=== PATIENT | female | born 1960 | race Caucasian/White ===

== ENCOUNTER → 2017-10-18 13:03 | Outpatient (CLI) | payer OTHER, SELFPAY ==
[2017-10-18 14:42] LABS: International Normalized Ratio 1.9; Prothrombin Time (Protime)PT. 20.6 SECONDS (11.7-14.9)
== END ==
PROVIDERS: Visit Provider Surgery
DX: Z79.01 Long term (current) use of anticoagulants (principal)
CPT/HCPCS: 36415; 85610

== ENCOUNTER → 2018-02-04 14:58 | Outpatient (CLI) | payer OTHER, SELFPAY ==
[2018-02-04 17:35] LABS: Absolute Lymphocyte Count 1.97 X10^3/ul (0.83-4.51); Basophil# 0.02 X10^3/uL; Basophil% 0.4 % (0-1); Eosinophil# 0.02 X10^3/uL; Eosinophils% 0.4 % (0-5); Hematocrit 42.7 % (37-47); Hemoglobin 14.5 g/dl (12.0-15.0); Lymphocyte # 1.97 X10^3/ul (4.0); Mean Corpuscular Hgb 29.5 pg (27.0-32.0); Mean Corpuscular Volume 86.8 fL (81-99); Mean Platelet Vol. 10.5 fl (6.2-12.0); Monocyte# 0.48 X10^3/uL; Monocyte% 8.8 % (0-10); Neutrophil # 2.97 X10^3/uL (2.7-7.7); Neutrophil % 54.2 % (47-70); Platelet Count 236 K/mm3 (150-450); RBC Distribution Width CV 12.5 % (11.6-14.6); RBC Distribution Width SD 39.3 fl (35.1-43.9); Red Blood Count 4.92 M/mm3 (4.2-5.4); White Blood Count 5.5 K/mm3 (4.4-11.0)
[2018-02-04 17:42] LABS: POSITIVE COUNT NO; POSITIVE DIFFERENTIAL NO; POSITIVE MORPHOLOGY NO
[2018-02-04 18:44] LABS: ALB/GLOB Ratio 1.1 RATIO (0.9-2.4); AST(SGOT) 24 U/L (15-37); Alanine Aminotransfer ALT/SGPT 27 U/L (13-56); Albumin, Serum 4.1 g/dL (3.2-5.0); Alkaline Phosphatase 83 U/L (45-117); Anion Gap 9 (5-15); BUN 16 mg/dL (7-18); BUN/Creat Ratio 20.5 RATIO (10-20); Calcium,Total 8.8 mg/dL (8.5-10.1); Chloride 105 mmol/L (98-107); Cholesterol 201 mg/dL (200); Creatinine, Serum 0.78 mg/dL (0.55-1.02); EST Glomerular Filtration Rate 80 mL/min (>60); Est Glom Filt Rate - Afr Amer 97 mL/min (>60); Globulin 3.8 g/dL (2.2-4.2); Glucose 86 mg/dL (74-106); High Density Lipoprotein 57 mg/dL; Potassium 3.7 mmol/L (3.5-5.1); Protein, Total 7.9 g/dL (6.4-8.2); Sodium Level 140 mmol/L (136-145); T4 Free Direct 1.86 ng/dL (0.76-1.46); Thyroid Stim Hormone (TSH) 0.02 uIU/mL (0.358-3.74); Triglycerides 105 mg/dL; Very Low Density Lipoprotein 21 mg/dL (5-40)
== END ==
PROVIDERS: Family Provider Family Medicine; PCP Family Medicine; Visit Provider Family Medicine
DX: D68.59 Other primary thrombophilia (principal); E89.0 Postprocedural hypothyroidism; Z82.49 Family history of ischemic heart disease and other diseases of the circulatory system
CPT/HCPCS: 36415; 80053; 80061; 84439; 84443; 85025

== ENCOUNTER → 2018-03-08 08:07 | Outpatient (CLI) | payer OTHER, SELFPAY ==
--- NOTE | 2018-03-08 08:07 | RAD_ITS ---
STUDY: BARIUM ENEMA. REASON FOR EXAM: Female, 57 years old. Colostomy for a ruptured diverticulitis and possible re-anastomosis. FLUOROSCOPY TIME (if supplied): (1:22) minutes/seconds TECHNIQUE: Contrast was introduced retrograde through the stoma as well as to the rectum. Entire colon was opacified. COMPARISON: None. FINDINGS: The left hemicolon as well as the transverse colon and the right hemicolon are unremarkable. Residual fecal material is seen within the rectal stump. There is no evidence of obstruction. RAD/Barium Enema No Air Cont IMPRESSION: Unremarkable barium enema through the stoma as well as the rectum. Electronically Signed: Stephon Doan MD at 8:21 EDT Tel [phone], Service support ,
== END ==
PROVIDERS: Family Provider Family Medicine; PCP Family Medicine; Visit Provider Surgery
DX: K57.20 Diverticulitis of large intestine with perforation and abscess without bleeding (principal)
CPT/HCPCS: 74270

== ENCOUNTER 2018-05-09 05:24 | Inpatient (IN) | payer OTHER, SELFPAY ==
[2018-05-02 10:28] VITALS: BP 142/77; PULSE 76; RESP 16; TEMP 36.6; O2SAT 95; BMI 31.3
[2018-05-02 10:57] LABS: Hemoglobin 13.6 g/dl (12.0-15.0); Mean Corp Hgb Conc 33.2 g/gl (32-36); Mean Corpuscular Hgb 29.6 pg (27.0-32.0); Mean Corpuscular Volume 89.3 fL (81-99); Mean Platelet Vol. 9.5 fl (6.2-12.0); Platelet Count 215 K/mm3 (150-450); RBC Distribution Width CV 13.8 % (11.6-14.6); RBC Distribution Width SD 44.4 fl (35.1-43.9); Red Blood Count 4.59 M/mm3 (4.2-5.4); Scan Indicated on CBC? Y/N NO; White Blood Count 4.3 K/mm3 (4.4-11.0)
[2018-05-02 11:28] LABS: Anion Gap 7 (5-15); BUN 14 mg/dL (7-18); BUN/Creat Ratio 19.7 RATIO (10-20); Calcium,Total 8.9 mg/dL (8.5-10.1); Chloride 111 mmol/L (98-107); Creatinine, Serum 0.71 mg/dL (0.55-1.02); EST Glomerular Filtration Rate 89 mL/min (>60); Est Glom Filt Rate - Afr Amer 108 mL/min (>60); Estimated Creatinine Clearance 68.31 ml/min; Glucose 93 mg/dL (74-106); Sodium Level 142 mmol/L (136-145); Thyroid Stim Hormone (TSH) 0.09 uIU/mL (0.358-3.74)
[2018-05-09] VITALS (11 sets, daily range): BP systolic 104–141; BP diastolic 50–88; PULSE 60–111; RESP 14–18; TEMP 36.5–37.6; O2SAT 92–99; BMI 31.3
--- NOTE | 2018-05-09 | COL_PTH ---
PATIENT: GREGORIO MORRIS LOC: MS2 U#:[id number] AGE/SX: 57/F ROOM: MS210 RE05/09/[address]: Dr. Nicola Rosenthal MD : 1960 BED: 1 DIS: 05/11/2018 SPEC #: [id number] RECD: 05/09/18 15:33 STATUS: CAMELIA REOctavio #: [id number] FLORECITA: 05/09/18 00:[address]: Nicola Rosenthal DEPT: SURGICAL PATHOLOGY RECD BY: Baljeet Escamilla ENTERED: 05/09/18 15:34 SP TYPE: COLON OTHR DR: Dr. Richi Norwood MD Tissues: A - Colon Donuts B - Colon Donuts C - Colon, NOS D - Rectum, NOS Procedures: Surgery Specimen Level III Surgery Specimen Level IV HEADER OPERATION: Laparoscopic partial colectomy with take down colostomy PRE-OP DIAGNOSIS: History perforated diverticulum large intestine, Ghada pouch TISSUE SUBMITTED: A ? Rectal donut, B ? Sigmoid donut, C ? Sigmoid colon, D - Rectum MICROSCOPIC DIAGNOSIS A. Rectal donut: Colonic donut, no pathologic diagnosis. B. Sigmoid donut: Colonic donut, no pathologic diagnosis. C. Sigmoid colon, colostomy: Segment of sigmoid colon with adjacent skin consistent with colostomy with chronic inflammation and hyperkeratosis. D. Rectum: Segment of colon, no pathologic diagnosis. Pericolonic lymph node tissue with reactive changes. Kush 05/11/18 COMMENT Please make reference to previous specimen ([id number]), segment of sigmoid colon with diagnosis of diverticulosis and diverticulitis. MICROSCOPIC DESCRIPTION Slides are reviewed. GROSS DESCRIPTION A - Received in fixative is one container labeled with the patient's name and designated rectal donut. The specimen consists of a donut-shaped piece of colonic tissue measuring 1.5 x 1.5 x 1 cm. The mucosa is congested. No mass lesion is identified. The entire specimen is submitted in one cassette. / WOODROW:brad 05/09/18 B - Received in fixative is one container labeled with the patient's name and designated sigmoid donut. The specimen consists of a donut-shaped piece of colonic tissue measuring 1.5 x 1.5 x 0.6 cm. Multiple sutures are noted. Twisting Department End Finder sections are submitted in one cassette. / : 05/09/18 C - Received in fixative is one container labeled with the patient's name and designated sigmoid colon. The specimen consists of a segment of colon with a piece of skin attached at one edge measuring 4 cm in length. The skin piece measures 0.3 cm in thickness. Sections will be submitted after overnight fixation. / : 05/09/18 No mucosal lesion is identified. The mucosa is congested close to the colostomy site (at the junction of the skin). Twisting Department End Finder sections are submitted in three cassettes as follows: 1 & 2 ? colon with adjacent skin, 3 ? resources representative section away from the other area and pericolonic adipose tissue. / : 05/10/18 D - Received in fixative is one container labeled with the patient's name and designated rectum. The specimen consists of a segment of colon with attached adipose tissue measuring 5 cm in length. Both resection margins are stapled. No mucosal lesion is identified. The sections will be submitted after overnight fixation. / : 05/09/18 No mucosal lesions are identified. Sections of the attached adipose tissue reveal focal congested and hemorrhagic area. Twisting Department End Finder sections are submitted in three cassettes as follows: 1 & 2 ? colonic tissue, 3 ? pericolonic adipose tissue. / : 05/10/18 TC:5 CPT: 97086 x3, 44421
--- NOTE | 2018-05-09 06:23 | PCM.CONS.B ---
Problem List (1) DVT (deep venous thrombosis) Status: Chronic (2) Perforated diverticulum of large intestine Status: Acute (3) Protein C deficiency Status: Chronic - Consult Date of Consult: 05/09/18 Update history and physical - Reason for Consult HPI: Patient is a 57 y/o female I am following for Ghada pouch takedown. Patient denies recent hospitalizations or illnesses. She denies abdominal pain/discomfort. She has held her anticoagulation. She is anxious for the procedure to be completed. Patient's previous history per Dr. Rosenthal: GREGORIO MORRIS, is a 57 F who presents to the office today for ongoing surgical care. 57-year-old female. October 04, 2017 she was taken to surgery with fecal peritonitis and perforation of a sigmoid diverticulum. She underwent a Ghada procedure. This was performed through an open technique. An end sigmoid colostomy performed. Her complicating features include chronic coumadinization because of 5 previous DVTs. Fortunately her stay was not complicated by DVT at that time. The patient has protein C deficiency I have records dated March 21, [address] Ethan Agudelo colonoscopy demonstrating diverticulosis of the sigmoid and descending colon. No polyps. Follow-up colonoscopy at 10 years. My notes made comment that at the time of her surgery there was diffuse fecal contamination. Extensive adhesions may be present. On March 08, 2018 at the [facility] I had a barium enema obtained. This was not remarkable. She appears to have an adequate rectal pouch. She has laxity noted at the splenic flexure which should further assist. The patient has made positive health changes. She now appears to be physically recovered. Intake Vital Signs 03/29/18 Height 5 ft 2 in 03/29/18 Weight: 171 lb 03/29/18 Body Mass Index (BMI) 31 03/29/18 Blood Pressure 141/65 03/29/18 Blood Pressure Location Rt brachial 03/29/18 Blood Pressure Position Sitting 03/29/18 Respiratory Rate 16 03/29/18 Pulse Rate 60 03/29/18 Pulse Source Monitor 03/29/18 Temperature 97.7 F 03/29/18 Temperature Source Temporal 03/29/18 Pulse Ox 97 03/29/18 Oxygen Delivery Method room air Intake Visit Reasons: Discuss Barium Enema results- 03/08/18 Chief Complaint: ostomy leak [place] Stainer Required: No Is patient in pain?: No Allergies Sulfa (Sulfonamide Antibiotics) Allergy Medications Levothyroxine [Synthroid] 150 mcg PO DAILY 02/23/14 [History Confirmed 03/29/18] Warfarin [Coumadin] 7.5 mg PO FOWLER 02/23/14 [History Confirmed 03/29/18] Warfarin [Coumadin] 5 mg PO MOTUWETHFRSA 10/04/17 [History Confirmed 03/29/18] Acetaminophen [Tylenol Tablet] 325 - 650 mg PO Q4H PRN PRN tab 10/10/17 [Rx Confirmed 03/29/18] Amox/Clavulanate Tablet [Augmentin Tablet] 875 mg PO BIDCM #10 tab 10/10/17 [Rx Confirmed 03/29/18] Enoxaparin [Lovenox] 80 mg SC Q12@0600,1800 syringe 10/10/17 [Rx Confirmed 03/29/18] Hydrocodone Bitart/Apap 5-325 [[place] 5/325] 1 - 2 tab PO Q4H PRN PRN #15 tab 10/10/17 [Rx Confirmed 03/29/18] Metronidazole [Flagyl] 500 mg PO TID #15 tab 10/10/17 [Rx Confirmed 03/29/18] PFSH Medical History Migraines (Chronic) Anxiety (Chronic) Goiter (Chronic) Hypothyroidism (Chronic) DVT (deep venous thrombosis) (Chronic) IBS (irritable bowel syndrome) (Chronic) Vasovagal syncope (Chronic) Perforated diverticulum of large intestine (Acute) Sepsis (Acute) Protein C deficiency (Chronic) Hypoalbuminemia (Acute) Anemia (Acute) Hypokalemia (Acute) Peritonitis (acute) generalized (Acute) History of open sigmoidectomy (Acute ~10/04/17) Family History Grandfather Colon cancer Father Diabetes Heart disease Mother Hypertension Social History Smoking Status: Never smoker substance use type: does not use ROS General General: Yes weight change; no appetite, fatigue, colon cancer, breast cancer or weakness HEENT HEENT: No difficulty swallowing, eye injury, eye surgery, swollen glands or hoarseness Endo Endocrine: Yes thyroid disease; no diabetes mellitus, thyroid cancer, Hair loss, heat intolerance or cold intolerance Skin Skin: No rash or changing moles [facility] Musculoskeletal: No back problems, arthritis, rheumatoid arthritis, gout or joint pain Cardio Cardiovascular: No murmur, pacemaker, heart disease, atrial fibrillation, high blood pressure, heart attack, heart stent, palpitations, shortness of breat with exertion or chest pain Psych Psychiatric: No depression, anxiety or hearing voices Resp Respiratory: No shortness of breath, No sleep apnea, No cough, No COPD, No asthma, No emphysema, No wheezing Gastro Gastrointestinal: No abdominal pain, No nausea or vomiting, No diarrhea, No constipation, No blood in stool, No acid reflux, No hemorrhoids, No ulcers, No gallbladder problem, No black,tarry stools Deon Hematologic: Yes blood thinners, No blood disorders, No bleeding, No anemia, Yes blood clots Neuro Neurologic: No system reviewed and no additional complaints, except as docu, No as per HPI, No abnormal walking, No abnormal hearing, No abnormal movements, No abnormal speech, No behavioral changes, No burning sensations, No confusion, No seizure-like activity, No unsteadiness, No dizziness, No localized weakness, No frequent falls, No headache(s), No lack of coordination, No loss of vision, No memory loss, No numbness, No other visual disturbances, No radiating pain, No restless legs, No sensory deficit, No fainting, No tingling, No tremor(s), No weakness, No other Exam Const General: cooperative, healthy appearing, comfortable, no acute distress Nutritional Appearance: average body habitus Orientation: alert, awake, oriented x3 [facility] Head: normal to inspection Eyes General: appearance normal, both eyes and all related structures Neck Neck: normal visual inspection Chest Chest palpation & inspection: normal inspection of the chest Resp Effort & Inspection: normal respiratory effort Auscultation: clear to auscultation bilaterally Cardio Rate: regular rate Rhythm: regular rhythm Heart Sounds: no murmurs GI Palpation: soft, no hepatosplenomegaly Auscultation: normal bowel sounds Other: Well-healed infraumbilical midline incision with mild hypertrophic scarring. Left lower quadrant and sigmoid colostomy noted. Healthy in appearance. [facility] Cervical Spine: normal cervical lordosis Skin General: no rashes or lesions noted Neuro Cranial Nerves: CN's II-XI intact bilaterally Extrem General: no clubbing, cyanosis or edema Psych Affect: normal affect Assessment & Plan Problems 1. Chronic deep vein thrombosis (DVT) of both lower extremities, unspecified vein 2. Perforated diverticulum of large intestine 3. Protein C deficiency Plan Dr. Rosenthal will plan to perform a laparoscopic takedown of her end sigmoid colostomy. Technique, benefits, risks, alternatives have been previously discussed with the patient by Dr. Rosenthal. Patient is aware that conversion to an open procedure may occur. There are no guarantees of success. Patient has had the opportunity to ask and have questions answered. Patient verbally understands and agrees to proceed with the proposed procedure. Patient was instructed to hold her Coumadin 3 days preoperatively. Lovenox 40 mg subcu daily for 2 days preoperatively. Patient will use an enema the day prior to her surgery. She will also perform a MiraLAX bowel prep for her colon. Code Visit Inpatient E&M: 58281 Init Hosp L1 - NO CHARGE; UPDATE HISTORY AND PHYSICAL
--- NOTE | 2018-05-09 06:51 | DCINST_ITS ---
Discharge Diet: Light diet - advance as tolerated - if you have questions about your diet instructions, please talk to you doctor. Discharge Activity: May Not Drive - for 1 week or while taking narcotic pain medicine. May shower in (days): 1 Lifting Restrictions: 10 pounds Call your doctor if your incision/area has: Continuous Slow Oozing, Sudden Increased Bleeding, Increased Pain/ Swelling, Increased Redness, Foul Smelling Discharge Call your doctor if you observe: Fever of 101 or Higher Suture Line Care: Avoid Pulling/Pushing, Avoid Pinching/Bending Additional Dressing/Incision Instructions:: Change or remove dressing in 4 days. Leave steri-strips in place for 1 week. Allergies/Adverse Reactions: Allergies Sulfa (Sulfonamide Antibiotics) Allergy (Verified 05/02/18 10:13) Other i don't urinate, my systems shut down Medications to take at Discharge Levothyroxine [Synthroid] 150 mcg PO DAILY 02/23/14 Warfarin [Coumadin] 7.5 mg PO FOWLER 02/23/14 Warfarin [Coumadin] 5 mg PO MOTUWETHFRSA 10/04/17 Acetaminophen [Tylenol Tablet] 325 - 650 mg PO Q4H PRN PRN tab 10/10/17 Diphenhydramine HCl [Benadryl Allergy] 25 mg PO PRN PRN 05/02/18 Enoxaparin [Lovenox] 40 mg SC DAILY 05/02/18 Primary Care Physician: Richi Norwood MD [Primary Care Provider] - Test Results: Test results from this visit will be discussed in further detail at your follow- up appointment, if applicable. Please Follow Up With: Nicola Rosenthal MD - [phone] When: Call to make an appointment to be seen in about 10 days.
[2018-05-09] MEDS: Bupivacaine 0.5% PF 10 ML VIAL (08:10)
[2018-05-09] MEDS: BUPIVACAINE LIPOSOME/PF 20 ML VIAL OPERA.SITE (08:30)
[2018-05-09] MEDS: Lubricating Jelly 60 GM Tube 30 GM TOPICAL (10:26)
--- NOTE | 2018-05-09 12:10 | PCM.OPRPT ---
Problem List (1) Colostomy in place Status: Acute Report of Operation Date of Procedure: 05/09/18 Pre-Operative Diagnosis: Assessment and sigmoid colostomy left lower quadrant with history of perforated diverticulitis and fecal peritonitis Post-Operative Diagnosis: History of end sigmoid colostomy with history of diverticular sigmoid perforation with feculent peritonitis. Extensive intra-abdominal adhesions Surgery/Procedure Performed:: Laparoscopic takedown of end sigmoid colostomy with partial colectomy. Laparoscopic lysis of extensive adhesions Description of Surgical Findings:: .Informed consent was obtained 57-year-old female was taken to the operative room she was placed in a low lithotomy position the patient received 2 g of aspect of cefotetan the abdomen and perineum were sterilely prepped and drape Ioban drape was used as well the stoma the left lower quadrant was transversely elliptically excised sharply cicatrix and carried down to the bowel wall carefully maintaining the vascularity there is evidence of omentum in the peristomal defect hernia this was dissected free electrocautery and sharp dissection performed until I was able to gain access to the abdomen cleared adhesions off to the anterior abdominal wall sharply I then wrapped a 4 x 4 gauze around the end of the stoma and secured there with sutures. Placed that now back within the abdomen. I placed a Mcfarlane catheter. Then I was able to place a 5 mm trocar in the left upper quadrant. I was able to use that in the assigned to bluntly and sharply dissect adhesions in the mid abdomen I was able to place a 5 minute trocar in the right upper quadrant and then eventually further working away adhesions as I worked my way over from left to right was able to get 2 more trochars in the right lower quadrant all of these were initially 5 mm. Using sharp dissection blunt dissection harmonic scalpel dissection over an hour and a half was spent lysing extensive adhesions of omentum and small bowel to the anterior abdominal wall. Finally was able to further lyse adhesions get the small bowel up out of the pelvis identify the end of the sigmoid colon there was a loop of adherent bowel to be carefully dissected free I then had the end of the sigmoid colon was able to dissect free that free to the pelvis down to the peritoneal reflection. I upgraded the right lower quadrant from the trocar to a pulmonary trocar and then placed a 45 mm [place] with a global and transected the distal rectosigmoid. That specimen was placed in retrieval bag. I had a had the white line of tube was partially incised and had plenty of sigmoid colon I elected to not take an extensive dissection [place] lysed adhesions to the white line of Toldt further dissection would be required to completely release the splenic flexure and I did not feel that was acquired. I then retrieved the rectosigmoid portion but the inside the bag out through the left lower quadrant stoma site. We exited the bowel through that having placed a wound protector as well of course. The bowel was then measured to length a Lauryn clamp was placed around the bowel it was transected several interrupted 4-0 silk simple suture was used for hemostasis the lip suture of 2-0 Prolene was placed a 29 mm anvil was inserted and secured there with the Prolene. That was then dropped back within the abdomen. The wound protector was secured with a Dacron. The rectum was irrigated with dilute Betadine solution over several stool balls that I had to manually disimpact removed. Then using a rigid sigmoidoscope as well as dilators was able to get up to almost to the staple line just shy of it. At that point the bowel seemed to narrow I elected not to try to pursue it further. I felt that the degree of adhesions and dissection that we have performed already was quite satisfactory. Therefore exited the stapler out through the anterior aspect of the bowel just distal to the staple line. I watch the trocar come through then it was connected to the anvil taking care to exclude tubes ovaries were approximated the bowel to itself. It appeared to be nicely positional fired the device the circular anastomotic 29 mm stapler. Then that was removed the donuts were inspected and noted to be completely intact I used a rigid sigmoidoscope there was absolutely no air leak and the anastomosis appeared to be widely patent. I now reinspected the abdomen appear to be some blood coming from superiorly where the omentum was attached to the anterior abdominal wall. There was a portion of transverse colon that position I freed that up and then it appeared that with some Hem-o-lashae clips and was able to secure the bleeding did have some security concern that was really close to the transverse colon so I then utilized a 6 inch piece of 30V lock and I approximated the omentum overlying that area acting as a buttress. I did this in a running fashion. I felt that I had a nice buttressed over that area felt that I had hemostasis intact. All quadrants of the abdomen were now carefully inspected they were irrigated aspirated free there was evidence just from the blunt dissection of some diffuse areas of clot that had to be aspirated the pelvis interestingly it was quite dry where adhesions had been taken to take in the left upper quadrant that was a little bit and more but I had despite very careful inspection of all 4 quadrants at the completion procedure so no further bleeding. The 12 m trocar site in the right lower quadrant was closed with a grainy needle in a [id number] of 0 Vicryl. The trochars were removed and visualization the abdomen was allowed to deflate CO2. The posterior sheath from the stoma site had been partially approximated with interrupted 0 Vicryl for the posterior sheath. I then utilized running #1 PDS to approximate the fascia the fascia was actually quite attenuated and weak used to running line from superior to inferior. [place] that I had adequate closure and elected not to place mesh today due to the degree of work that I had to do with an risk of the fecal contamination. The remainder of the trocar wounds were closed with interrupted 4 Monocryl. The stoma site was closed at each end with interrupted 4 Monocryl and then 1/4 inch [place] was placed in the wound. Gauze dressings applied. Sponge and instrument and needle counts were reported the surgeon for correct. Blood loss approximately 150 cc. She tolerated was taken to recovery or insect condition with no apparent complication. It is of note that a Mercado catheter was placed at the initiation of the procedure. Specimens included the end of the rectosigmoid. The portion of sigmoid colon. And the doughnuts. Drains include a [place] to the subtenons space of the stomal wound. Blood loss 150 cc. Nicola Rosenthal M.D., F.A.C.S.
[2018-05-09] MEDS: Lactated Ringers 1,000 ML 50 ML IV (16:41)
--- NOTE | 2018-05-09 18:29 | PCM.PN.BLA ---
Progress Note Pt doing well UOP good Will mobilize pt Will start lovenox at a slighly lower dose tonight secondary to the extent of surgery and lysis of adhesions
[2018-05-09] MEDS: Ketorolac 15 MG/ML Vial IV (19:57)
[2018-05-09] MEDS: Enoxaparin 30 MG/0.3 ML Syringe SC (21:37)
[2018-05-10 03:28] VITALS: BP 109/51; PULSE 99; RESP 16; TEMP 37.2; O2SAT 99
--- NOTE | 2018-05-10 05:59 | PCM.PN.SRG ---
Patient Problems: Active and Suspected Problems (Last Reviewed 03/29/18 @ 13:17 by Emily Still) Colostomy in place (Acute) Subjective: Tolerating discomfort No flatus, no nausea - Physical Exam Abdomen: Soft, Hypoactive Bowel Sounds, Distended Vital Signs Temp Pulse Resp BP Pulse Ox 99.0 F 99 16 109/51 L 99 05/10/18 03:28 05/10/18 03:28 05/10/18 03:28 05/10/18 03:28 05/10/18 03:28 Oxygen Delivery Method Room Air Weight: 171 lb 1.259 oz Body Mass Index (BMI) 31.3 Intake and Output for Last 24 Hours 05/08/18 05/09/18 05/10/18 23:59 23:59 23:59 Intake Total 3996 / 3996 530 / 530 Output Total 2410 / 2410 250 / 250 Balance 1586 / 1586 280 / 280 Medical Necessity - Tobacco Use Smoking Status: Never smoker Tobacco Use: Non-smoker Assessment/Plan All Active Problems (Last Reviewed 03/29/18 @ 13:17 by Emily Still) Colostomy in place (Acute) Perforated diverticulum of large intestine (Acute) Sepsis (Acute) Hypoalbuminemia (Acute) Anemia (Acute) Hypokalemia (Acute) Peritonitis (acute) generalized (Acute) History of deep vein thrombosis (DVT) of lower extremity (Resolved) Will advance ankita today MAVIS ivy Await labs and plan resuming both lovenox and coumadin today Start clears Encourage mobilization Stop IVF
[2018-05-10] MEDS: Levothyroxine 150 MCG Tablet PO (06:07)
[2018-05-10 06:23] LABS: Absolute Lymphocyte Count 1.47 X10^3/ul (0.83-4.51); Absolute Neutrophil Count 4.6 X10^3/uL (2.0-7.7); Basophil# 0.01 X10^3/uL; Basophil% 0.1 % (0-1); Eosinophil# 0.01 X10^3/uL; Eosinophils% 0.1 % (0-5); Hemoglobin 11.5 g/dl (12.0-15.0); Lymphocyte # 1.47 X10^3/ul (4.0); Lymphocyte % 21.6 % (19-41); Mean Corp Hgb Conc 32.9 g/gl (32-36); Mean Corpuscular Hgb 29.3 pg (27.0-32.0); Mean Corpuscular Volume 89.3 fL (81-99); Mean Platelet Vol. 9.6 fl (6.2-12.0); Monocyte# 0.69 X10^3/uL; Monocyte% 10.1 % (0-10); Neutrophil # 4.63 X10^3/uL (2.7-7.7); Neutrophil % 68.1 % (47-70); Platelet Count 170 K/mm3 (150-450); RBC Distribution Width CV 13.6 % (11.6-14.6); RBC Distribution Width SD 44.1 fl (35.1-43.9); Red Blood Count 3.92 M/mm3 (4.2-5.4); White Blood Count 6.8 K/mm3 (4.4-11.0)
[2018-05-10 06:35] LABS: Anion Gap 7 (5-15); BUN 8 mg/dL (7-18); BUN/Creat Ratio 10.4 RATIO (10-20); Calcium,Total 7.9 mg/dL (8.5-10.1); Chloride 104 mmol/L (98-107); Creatinine, Serum 0.77 mg/dL (0.55-1.02); EST Glomerular Filtration Rate 82 mL/min (>60); Est Glom Filt Rate - Afr Amer 99 mL/min (>60); Estimated Creatinine Clearance 62.99 ml/min; Glucose 82 mg/dL (74-106); Potassium 3.6 mmol/L (3.5-5.1); Sodium Level 139 mmol/L (136-145)
[2018-05-10 06:36] LABS: POSITIVE COUNT NO; POSITIVE DIFFERENTIAL NO; POSITIVE MORPHOLOGY NO
--- NOTE | 2018-05-10 06:57 | PCM.PN.BLA ---
Progress Note Patient evaluated. No concerns or complaints of nausea, vomiting. She is tolerating sips and chips. Advance to clears this morning. Roseann drain advanced and incision was redressed. Abdomen soft. hypoactive bowel sounds present. Code Visit Inpatient E&M: 14300 Subs Hosp L1 - NO CHARGE; POST-OP
[2018-05-10] MEDS: 0.9% NaCl Peripheral Flush Adult/Peds IV (08:58)
[2018-05-10 09:00] VITALS: BP 126/71; PULSE 95; RESP 18; TEMP 37.6; O2SAT 94
[2018-05-10] MEDS: Enoxaparin 30 MG/0.3 ML Syringe SC (10:03)
[2018-05-10 10:11] LABS: International Normalized Ratio 1.2; Prothrombin Time (Protime)PT. 15.4 SECONDS (11.7-14.9)
[2018-05-10] MEDS: HYDROcodone Bitartrate/Apap 5/325 Tablet PO ×3 (10:14→20:05)
[2018-05-10 15:10] VITALS: BP 117/59; PULSE 87; RESP 18; TEMP 36.8; O2SAT 94
--- NOTE | 2018-05-10 15:56 | CASEMGMT ---
RN CM Assessment completed. See Link. DC Plan: Home -Pt voiced no DC needs. Plan is for home with family support. Santi KOROMA RN ACM
[2018-05-10 21:10] VITALS: BP 108/63; PULSE 89; RESP 16; TEMP 37; O2SAT 94
[2018-05-11 03:45] VITALS: BP 115/69; PULSE 85; RESP 18; TEMP 37.1; O2SAT 94
[2018-05-11] MEDS: HYDROcodone Bitartrate/Apap 5/325 Tablet PO (04:52)
[2018-05-11] MEDS: Levothyroxine 150 MCG Tablet PO (04:53)
[2018-05-11] MEDS: Enoxaparin 40 MG/0.4 ML Syringe SC ×2 (04:54→16:19)
--- NOTE | 2018-05-11 06:13 | PN.SURG_ITS ---
Patient Problems: Active and Suspected Problems (Last Reviewed 03/29/18 @ 13:17 by Emily Still) Colostomy in place (Acute) Subjective: No flatus but no nausea and active BS - Physical Exam General: Alert, Oriented x3, Cooperative Abdomen: Bowel Sounds Present, Soft, Non Tender Vital Signs Temp Pulse Resp BP Pulse Ox 98.8 F 85 18 115/69 94 05/11/18 03:45 05/11/18 03:45 05/11/18 03:45 05/11/18 03:45 05/11/18 03:45 Oxygen Delivery Method Room Air Weight: 171 lb 1.259 oz Body Mass Index (BMI) 31.3 Intake and Output for Last 24 Hours 05/09/18 05/10/18 05/11/18 23:59 23:59 23:59 Intake Total 3996 / 3996 1636 / 1636 630 / 630 Output Total 2410 / 2410 1450 / 1450 750 / 750 Balance 1586 / 1586 186 / 186 -120 / -120 Laboratory Tests Past 24 Hrs 05/10/18 05/10/18 05/10/18 05:48 05:48 09:47 WBC 6.8 RBC 3.92 L Hgb 11.5 L Hct 35.0 L MCV 89.3 MCH 29.3 MCHC 32.9 RDW 13.6 RDW Differential 44.1 H Plt Count 170 MPV 9.6 Immature Gran % (Auto) 0.000 Neut % (Auto) 68.1 Lymph % (Auto) 21.6 [place] % (Auto) 10.1 H Eos % (Auto) 0.1 Baso % (Auto) 0.1 Absolute Neuts (auto) 4.6 Absolute Lymphs (auto) 1.47 Total Counted Not Reportable PT 15.4 H INR 1.2 Sodium 139 Potassium 3.6 Chloride 104 Carbon Dioxide 28.0 Anion Gap 7 BUN 8 Creatinine 0.77 Estim Creat Clear Calc 62.99 Est GFR (MDRD) Af Amer 99 Est GFR (MDRD) Non-Af 82 BUN/Creatinine Ratio 10.4 Glucose 82 Calcium 7.9 L Medical Necessity - Tobacco Use Smoking Status: Never smoker Tobacco Use: Non-smoker Assessment/Plan All Active Problems (Last Reviewed 03/29/18 @ 13:17 by Emily Still) Colostomy in place (Acute) Perforated diverticulum of large intestine (Acute) Sepsis (Acute) Hypoalbuminemia (Acute) Anemia (Acute) Hypokalemia (Acute) Peritonitis (acute) generalized (Acute) History of deep vein thrombosis (DVT) of lower extremity (Resolved) Advance ankita. Plan for it to be out today or tomorrow May shower tomorrow Will increase to lovenox 80mg daily. A second dose will be given today Plan home on Lovenox 80mg daily for one week then 40mg daily for the second week Home on coumadin as well Plan discharge later today pending progress Advance to fulls
[2018-05-11] MEDS: Polyethylene Glycol 3350 17 GM PACKET 34 GM PO (06:26)
[2018-05-11 08:19] VITALS: BP 113/64; PULSE 86; RESP 18; TEMP 36.9; O2SAT 95
--- NOTE | 2018-05-11 14:28 | CASEMGMT ---
RN CM Note. DC PLAN HOME. Noted pt will be dc'd on Lovenox. Script not available for jimenez checking, however patient does have prescription coverage and has taken injections in past. Nurse Verónica KWONN RN ACM
[2018-05-11 15:34] VITALS: BP 117/68; PULSE 95; RESP 18; TEMP 36.9; O2SAT 96
--- NOTE | 2018-05-11 18:17 | NURSING ---
Dr. Rosenthal called requesting update on patient- updated regarding stable vitals, 5 small bowel movements- mucous brown, pt tolerating full liquid diet. Reports that patient may be d/c'ed at this time and that Shazia Danna may have removed ankita drain today but that if not it may be removed. Patient requested that drain be removed here prior to leaving. This RN removed dressing applied to abdomen and with slight pull on drain- easily slipped out of surgical incision. Dry sterile dressing applied and patient sent with a few dressing supplies in case needed for next few days. Patient requested information on dietary guidelines following abdominal surgery. Patient given diet instructions regarding soft, low gastric stim. diet. Patient verbalized understanding that [facility] and [facility] and patient states that she has the lovenox at home with the instructions from dr. rosenthal. patient denied further questions and was assisted out to 's waiting vehicle at entrance.
--- NOTE | 2018-05-12 10:31 | PCM.DC.SUM ---
Discharge Date and Diagnosis Date of Admission: 05/09/18 Date of Discharge: 05/11/18 - Primary Discharge Diagnosis Colostomy takedown Hx ruptured sigmoid diverticulitis - Secondary Discharge Diagnosis Chronic Problems (Last Reviewed 03/29/18 @ 13:17 by Emily Still) Migraines (Chronic) Anxiety (Chronic) Goiter (Chronic) Hypothyroidism (Chronic) DVT (deep venous thrombosis) (Chronic) IBS (irritable bowel syndrome) (Chronic) Vasovagal syncope (Chronic) Protein C deficiency (Chronic) Hospital Course and Treatment Operations: appendectomy, - - Laparoscopic takedown of end sigmoid colostomy with partial colectomy. Laparoscopic lysis of extensive adhesions Summary of Care Provided: The patient is a 57 year old F I am following for colostomy takedown. Dr. Rosenthal performed a Laparoscopic takedown of end sigmoid colostomy with partial colectomy. Laparoscopic lysis of extensive adhesions on 05/09/2018. Patient tolerated the procedure well. Patient had ankita removed prior to discharge. ABD dressing was applied and provided to patient. Patient's hospitalization was uncomplicated. Upon discharge, patient denies nausea, vomiting. She is tolerating a diet. She had multiple small bowel movements prior to discharge. Positive flatus. She has instructions on continuing Lovenox and restarting Coumadin. Our office will notify patient in regards to recheck INR. Discharge Diet: Light diet - advance as tolerated - if you have questions about your diet instructions, please talk to you doctor. Discharge Activity: May Not Drive - for 1 week or while taking narcotic pain medicine. May shower in (days): 1 Call your doctor if your incision/area has: Continuous Slow Oozing, Sudden Increased Bleeding, Increased Pain/ Swelling, Increased Redness, Foul Smelling Discharge Call your doctor if you observe: Fever of 101 or Higher Suture Line Care: Avoid Pulling/Pushing, Avoid Pinching/Bending Additional Dressing/Incision Instructions:: Change or remove dressing in 4 days. Leave steri-strips in place for 1 week. Home Medications: Medications to take at Discharge Levothyroxine [Synthroid] 150 mcg PO DAILY 02/23/14 Warfarin [Coumadin] 7.5 mg PO FOWLER 02/23/14 Warfarin [Coumadin] 5 mg PO [id number] 10/04/17 Acetaminophen [Tylenol Tablet] 325 - 650 mg PO Q4H PRN PRN tab 10/10/17 Diphenhydramine HCl [Benadryl Allergy] 25 mg PO Q8H PRN PRN 05/02/18 Enoxaparin [Lovenox] 40 mg SC DAILY 05/02/18 Hydrocodone Bitart/Apap 5-325 [Daisy 5/325] 1 tablet PO Q4H PRN PRN 2 Days #10 tablet 05/11/18 Following Prescrptions Were Given to Patient: Hydrocodone Bitart/Apap 5-325 [Daisy 5/325] 1 tablet PO Q4H PRN PRN 2 Days #10 tablet PRN Reason: Pain Primary Care Physician: Richi Norwood MD [Primary Care Provider] - Please Follow Up With: Nicola Rosenthal MD - [phone] When: Call to make an appointment to be seen in about 10 days. Disposition: Home Minutes spent on discharge:: 20 Patient Condition:: Good Medical Necessity - Tobacco Use Smoking Status: Never smoker Tobacco Use: Non-smoker Meaningful Use Info Meaningful Use Diagnoses (Choose all that apply): None applicable Code Visit Inpatient E&M: 68548 Disch Hosp
== END 2018-05-11 18:11 | disposition home or self-care (01) | DRG 330 ==
LOC: ACINP 05:26 → MS2 05-10 07:38 → MS3 05-10 07:38
PROVIDERS: Physician Assistant; Admitting Provider Surgery; Family Provider Family Medicine; PCP Family Medicine; Visit Provider Surgery
PROC: 0DTN0ZZ Resection of Sigmoid Colon, Open Approach (ICD-10-PCS; CPT 44204; principal; 2018-05-09 06:50)
DX: Z43.3 Encounter for attention to colostomy (principal); D68.59 Other primary thrombophilia; K66.0 Peritoneal adhesions (postprocedural) (postinfection); Z86.718 Personal history of other venous thrombosis and embolism; Z79.01 Long term (current) use of anticoagulants; E03.9 Hypothyroidism, unspecified; K43.5 Parastomal hernia without obstruction or gangrene
CPT/HCPCS: 36415; 80048; 84443; 85025; 85027; 85610; 88304; 88305; 88307; 93005; J7120; A4216; J2405; J3490

== ENCOUNTER → 2018-08-29 14:27 | Outpatient (CLI) | payer OTHER, SELFPAY ==
[2018-08-23 15:11] VITALS: BMI 31.3
--- NOTE | 2018-08-29 14:28 | CT_ITS ---
STUDY: CT ABDOMEN AND PELVIS WITH CONTRAST REASON FOR EXAM: Female, 58 years old. Low abdomen and pelvis swelling. History of colostomy for colonic/appendiceal rupture, with reversal September 2017. RADIATION DOSAGE (If Supplied By Facility): CTDIvol = ( 11.23 ) mGy, DLP = ( 511.50 ) mGycm TECHNIQUE: Transaxial images were obtained from the dome of the diaphragm to the symphysis pubis with oral contrast. 1000ml ml of Barium contrast was administered. Sagittal and coronal images were reconstructed. Individualized dose optimization techniques were used for this CT. COMPARISON: CT abdomen and pelvis with oral and IV contrast February 24, 2014; barium enema March 08, 2018. FINDINGS: The visualized lung bases are unremarkable. The visualized portions of the heart are within normal limits. Normal liver. The portal vein diameter is 14.5 mm. Normal gallbladder and extrahepatic biliary system. The common bile duct diameter reaches 5 mm. Normal spleen. Normal pancreas. Normal bilateral adrenal glands. There is a stable 14 mm cortical cyst in the lower pole of the right kidney. Normal left kidney. No hydronephrosis. Normal visualized stomach. Normal small intestine. There are anastomotic suture lines at the rectosigmoid junction, with an anteriorly directed, nondistended 7.5 cm outpouching of colon from the suture lines residing in the upper presacral space. There are calcifications in the region of the appendix consistent with a prior appendectomy. There is minimal atherosclerotic calcification of the infrarenal abdominal aorta, without a demonstrated aneurysm. Normal inferior vena cava. Normal retroperitoneum. Normal urinary bladder. There is atrophy of the uterus. There is a healed midline incision of the low anterior abdominal wall. There is a 5 cm wide diastasis between the infraumbilical rectus muscles, allowing for a 12 x 4.6 x 11.5 cm low anterior abdominal wall hernia containing loops of nondistended small bowel and mesentery. There are multilevel mild degenerative changes of the visualized lumbar spine. CT/Abdomen/Pel W ORAL Cont Only IMPRESSION: 1. Prior appendectomy as well as rectosigmoid surgery. There is a 7.5 cm outpouching of nondistended colon from the level of the rectosigmoid suture lines. No sign of bowel obstruction. 2. There is a 5 cm wide diastasis between the inferior umbilical rectus muscles, allowing for 12 cm wide, 4.6 cm deep anterior abdominal wall hernia containing nondistended small bowel and mesentery. 3. Stable 14 mm cortical cyst in the lower pole of the right kidney. No hydronephrosis. Electronically Signed: Massimo Zimmerman MD at 15:04 EST , Service support ,
== END ==
PROVIDERS: Family Provider Physician Assistant; PCP Physician Assistant; Referring Provider Surgery; Visit Provider Surgery
DX: R19.00 Intra-abdominal and pelvic swelling, mass and lump, unspecified site (principal)
CPT/HCPCS: 74176

== ENCOUNTER → 2018-12-02 12:43 | Outpatient (CLI) | payer OTHER, SELFPAY ==
[2018-09-02 15:25] VITALS: BMI 31.3
[2018-12-02 13:25] LABS: International Normalized Ratio 1.2; Prothrombin Time (Protime)PT. 14.6 SECONDS (11.7-14.9)
== END ==
PROVIDERS: Family Provider Family Medicine; PCP Family Medicine; Referring Provider Internal Medicine; Visit Provider Internal Medicine
DX: I44.2 Atrioventricular block, complete (principal); Z86.718 Personal history of other venous thrombosis and embolism
CPT/HCPCS: 85610

== ENCOUNTER → 2019-01-02 | Outpatient (CLI) | payer OTHER, SELFPAY ==
[2018-09-02 15:25] VITALS: BMI 31.3
[2019-01-02 12:57] LABS: International Normalized Ratio 2.4; Prothrombin Time (Protime)PT. 26.4 SECONDS (11.7-14.9)
== END | disposition home or self-care (01) ==
LOC: LABSPEC 12:26
PROVIDERS: Family Provider Family Medicine; PCP Family Medicine; Referring Provider Internal Medicine; Visit Provider Internal Medicine
DX: I44.2 Atrioventricular block, complete (principal); Z86.718 Personal history of other venous thrombosis and embolism
CPT/HCPCS: 85610